=== PATIENT | female | born 1990 | race Hispanic/Latino ===

== ENCOUNTER → 2022-06-22 | Outpatient (CLI) | payer BC | END | disposition home or self-care (01) | LOC: SHCH 07:53 | PROVIDERS: ATTEND Student in an Organized Health Care Education/Training Program | DX: E78.5 Hyperlipidemia, unspecified (principal); R00.2 Palpitations | CPT/HCPCS: 93306 ==

== ENCOUNTER → 2024-03-29 | Outpatient (CLI) | payer BC ==
[2024-03-29 12:28] LABS: CHOLESTEROL 205 mg/dL (<200); HDL CHOLESTEROL 52 mg/dL (35-85); LDL DIRECT 130 mg/dL (0-99); TRIGLYCERIDES 183 mg/dL (30-200)
== END | disposition home or self-care (01) ==
LOC: LAB 03-28 15:47
PROVIDERS: ATTEND Student in an Organized Health Care Education/Training Program
DX: E78.2 Mixed hyperlipidemia (principal)
CPT/HCPCS: 36415; 80061